=== PATIENT | female | born 1980 | race Two or more races ===

== ENCOUNTER 2018-08-25 17:11 | Emergency (ER) | payer BC, MEDICAID ==
[~2018-08-25] VITALS: Ht 157.5 cm; Wt 66.2 kg
[~2018-08-25 17:11] MED LIST: ACET325T9 PO; [UNRECOGNIZED DRUG - CODE] PO
[2018-08-25] MEDS ORDERED: KETOROLAC 30 MG/ML VIAL. IM ONE (17:45)
[2018-08-25] MEDS ORDERED: PROCHLORPERAZINE 10 MG/2 ML VIAL. IM ONE (17:45)
--- NOTE | 2018-08-25 17:48 | PHYS DOC ---
Past Medical History Past Medical History: No Pertinent History, Migraines Past Surgical History: No Surgical History Alcohol Use: None Drug Use: None Adult General Chief Complaint Chief Complaint: HEADACHE HPI HPI Patient is a 38 year old f with headache. onset yesterday hx of similar known migraine gradual onset throbbing throughout a/w photpohobia intermittent blurry vision and nausea all similar to before. went to clinic, was told low oxygen and high blood pressure (134), and advised er eval. no fever. not thunderclap no chest pain Review of Systems Review of Systems Constitutional: Denies fever or chills [] Eyes: Denies change in visual acuity, redness, or eye pain [] HENT: Denies nasal congestion or sore throat [] Respiratory: Denies cough or shortness of breath [] Cardiovascular: No additional information not addressed in HPI [] GI: Denies abdominal pain, : Denies dysuria or hematuria [] Musculoskeletal: Denies back pain or joint pain [] Integument: Denies rash or skin lesions [] Neurologic:see hpi All other systems were reviewed and found to be within normal limits, except as documented in this note. Current Medications Current Medications Current Medications Medications (Trade) Dose Ordered Sig/Brian Start Time Stop Time Status Last Admin Dose Admin Ketorolac Tromethamine (Toradol 30mg Vial) 30 mg 1X ONCE 08/25/18 17:45 08/25/18 17:46 Prochlorperazine Edisylate (Compazine) 10 mg 1X ONCE 08/25/18 17:45 08/25/18 17:46 Allergies Allergies Allergies Coded Allergies Type Severity Reaction Last Updated Verified No Known Drug Allergies 05/11/13 No Physical Exam Physical Exam Constitutional: Well developed, well nourished, no acute distress, non-toxic appearance. [] HENT: Normocephalic, atraumatic, bilateral external ears normal, oropharynx moist, no oral exudates, nose normal. [] Eyes: PERRLA, EOMI, conjunctiva normal, no discharge. [] Neck: Normal range of motion, no tenderness, supple, no stridor. [] Pulmonary: Normal respiratory effort no increased work of breathing no obvious chest wall trauma Abdomen: Bowel sounds normal, soft, no tenderness, no masses, no pulsatile masses. [] Skin: Warm, dry, no erythema, no rash. [] Back: No tenderness, no CVA tenderness. [] Extremities: No tenderness, no cyanosis, no clubbing, ROM intact, no edema. [] Neurologic: Alert and oriented X 3, normal motor function, normal sensory function, no focal deficits noted. [] fnf intact. Psychologic: Affect normal, judgement normal, mood normal. [] Current Patient Data Vital Signs Vital Signs Date Time Temp Pulse Resp B/P (MAP) Pulse Ox O2 Delivery O2 Flow Rate FiO2 08/25/18 17:20 98.2 93 16 117/73 (88) 99 Room Air 98.2 Lab Values Laboratory Tests Test 08/25/18 17:28 POC Urine HCG, Qualitative Hcg negative (Negative) EKG EKG [] Radiology/Procedures Radiology/Procedures [] Course & Med Decision Making Course & Med Decision Making Pertinent Labs and Imaging studies reviewed. (See chart for details) []38-year-old female presenting with headache sounds very much like a migraine neuro intact well-appearing blood pressure normal. Sat 99 on room air. Unclear why she was sent here exactly however no abnormal vital signs seen in the emergency room urinalysis Compazine Toradol all pending likely plan for discharge home if she feels better. Care to yi Cruz Disclaimer Nancy Disclaimer This electronic medical record was generated, in whole or in part, using a voice recognition dictation system. Departure Departure Impression: Primary Impression: Headache Disposition: 01 HOME, SELF-CARE Condition: STABLE Patient Instructions: Headache, FAQs TEGAN ZHENG MD Aug 25, 2018 17:47
[2018-08-25 19:05] LABS: BILIRUBIN,URINE SMALL (NEG); CLARITY,URINE TURBID; COLOR,URINE AMBER; NITRITE,URINE NEGATIVE (NEG); PROTEIN,URINE NEGATIVE (NEG-TRACE); UROBILINOGEN,URINE 0.2 mg/dL (0.2 mg/dL)
[2018-08-25 19:19] VITALS: BP 114/64
[2018-08-25 19:49] LABS: AMORPHOUS SEDIMENT,UR PRESENT /HPF; BACTERIA,URINE 0 /HPF (0-FEW); RBC,URINE 0 /HPF (0-2); WBC,URINE 0 /HPF (0-4)
== END 2018-08-25 19:21 | disposition home or self-care (01) ==
LOC: ER 17:11
DX: G43.909 Migraine, unspecified, not intractable, without status migrainosus (principal)
CPT/HCPCS: 81001; 81025; 96372; 99283; J0780; J1885